=== PATIENT | male | born 1970 | race Caucasian/White ===

== ENCOUNTER → 2016-12-07 | Outpatient (CLI) | payer BC ==
[2016-12-07 17:33] LABS: LIPASE 199 IU/L (23-300)
== END ==
LOC: LAB 17:11
PROVIDERS: ATTEND Internal Medicine
DX: R10.13 Epigastric pain (principal); F17.200 Nicotine dependence, unspecified, uncomplicated
CPT/HCPCS: 36415; 82150; 83690

== ENCOUNTER → 2016-12-18 | Outpatient (CLI) | payer BC ==
--- NOTE | 2016-12-18 23:04 | DI ---
US ABDOMEN LIMITED,12/18/2016 10:48 AM: Clinical History: Dyspepsia. Previous Exam: None at this facility. Findings: Multiple grayscale and color Doppler sonographic images are obtained through the right upper quadrant , and demonstrates diffuse fatty infiltration of the liver. The gallbladder is normal the gallbladder wall measuring 2 mm. The common bile duct measured 3 mm. The right kidney is normal with some mild cortical thinning. The right kidney measures 11.5 cm in sandra gth without hydronephrosis nor nephrolithiasis. The pancreas is not well seen. Visualized portions of the aorta are unremarkable. Impression: Diffuse fatty infiltration of the liver otherwise unremarkable. Pancreas not well evaluated. Mild right renal cortical thinning may represent underlying medical renal disease.
== END ==
LOC: US 10:44
PROVIDERS: ATTEND Internal Medicine
DX: R10.13 Epigastric pain (principal); K76.0 Fatty (change of) liver, not elsewhere classified; F17.200 Nicotine dependence, unspecified, uncomplicated
CPT/HCPCS: 76705

== ENCOUNTER 2016-12-23 14:00 | Observation (INO) | payer BC ==
[2016-12-23] MEDS ORDERED: Sodium Chloride 0.9% 1,000 ML PRIMARY IV ONE (14:09)
[2016-12-23] MEDS ORDERED: NORMAL SALINE 10 ML SYRINGE FLUSH IVP PRN ×5 (14:09→16:32)
--- NOTE | 2016-12-23 14:21 | EKG ---
[address] [address] Measurements Intervals [place] Rate: 99 P: 44 WI: 133 QRS: 60 QRSD: 101 T: 60 QT: 363 QTc: 420 Interpretive Statements SINUS RHYTHM NONSPECIFIC T-WAVE ABNORMALITY No previous ECG available for comparison Electronically Signed On 12-23-16 14:41:16 MDT by Ed Bowles [id number]
[2016-12-23 14:27] LABS: BASOPHILS # (AUTO) 0.05 10*3/UL; BASOPHILS % (AUTO) 0.7 % (0-1); EOSINOPHILS # (AUTO) 0.08 10*3/UL; EOSINOPHILS % (AUTO) 1.2 % (0-8); HEMATOCRIT 49.1 % (42.0-52.0); HEMOGLOBIN 17.4 g/dL (14.0-18.0); LYMPHOCYTES # (AUTO) 2.14 10*3/uL; MEAN CORPUSCULAR HEMOGLOBIN 30.9 PG (27-31); MEAN CORPUSCULAR HGB CONC 35.4 g/dL (33-37); MEAN CORPUSCULAR VOLUME 87.1 FL (80-90); RED BLOOD COUNT 5.64 10^6/uL (4.70-6.10)
[2016-12-23 14:29] LABS: PLATELET MORPHOLOGY COMMENT NORMAL MORPHOLOGY (NORM); RBC MORPHOLOGY COMMENT NORMAL MORPHOLOGY (NORM); WBC MORPHOLOGY COMMENT NORMAL MORPHOLOGY (NORM)
[2016-12-23 14:40] LABS: BUN/CREATININE RATIO 19.28 (6-20); CALCIUM 8.6 mg/dL (8.7-10.7); MAGNESIUM 2.2 mg/dL (1.6-2.4); SERUM ALBUMIN 4.6 g/dL (3.5-4.8)
--- NOTE | 2016-12-23 14:59 | PDOC ---
Syncope/Near-Syncope HPI - General Chief Complaint: Syncope / Near-Syncope Stated Complaint: SYNCOPAL EPISODE Date Seen by Provider: 12/23/16 Time Seen by Provider: 14:05 Source: POSITIVE: Patient Exam Limitations: POSITIVE: No limitations Nurse's Notes Reviewed & Considered: Yes - History of Present Illness Initial Comments: The patient is a 46-year-old male who presents to the emergency department after passing out. He has a history of hypertension and for the past 6 months or so has been having some intermittent chest pain and pressure in his lower chest and epigastric region. He has seen his primary care provider recently and underwent a gallbladder ultrasound which was unremarkable except for fatty liver. His blood pressure was running on the high side at his last doctor's visit and he was changed from an RANI inhibitor for blood pressure to an rani/ diuretic combination which she is just started on within the last week. He states for the past couple of days he has been lightheaded with standing. He states that this happened several times yesterday. This afternoon he had just stood up and became very lightheaded and actually passed out. He also reports that he has continued pressure across his lower chest. This is the same pressure that he has been having fairly consistently now for the past 6 months however he states more recently it seems to be getting worse. He states he did have a previous stress test that was normal. In looking through his records however this was done in 2014. He states he does have some associated shortness of breath and was short of breath around the time when he passed out as well. He denied any rapid heartbeat or increased chest pain just prior to passing out. He currently states he is feeling better. He denies any headache , numbness or weakness in his arms or legs or any other associated complaints. - Patient Home Medications Home Medications: Home Medications Pantoprazole Sodium 1 tab PO BID #180 tab 07/08/16 Valsartan/Hydrochlorothiazide [Valsartan-Hctz 320-12.5 Mg Tab] 1 each PO QD #90 tab 12/07/16 - Patient Allergies Allergies/Adverse Reactions: Allergies Allergy/AdvReac Type Severity Reaction Status Date / Time No Known Allergies Allergy Verified 12/23/16 14:06 Past Medical History - heen Additional HEENT History: EAR RINGING Cardiovascular History: Hypertension Respiratory History: Denies History Gastrointestinal History: GERD Additional Gastrointestinal History: BARRETTS ESOPHAGUS. HX BLEEDING GASTRIC ULCER 15 YRS AGO Genitourinary History: Denies History Endocrine History: Denies History Musculoskeletal History: Denies History Prosthesis or Implant: No Neurological History: Denies History Blood Disorders: Denies History Psychiatric History: Denies History History of Sexually Transmitted Diseases: No Cancer History: Denies History In Past Year Been Physically Harmed or Verbally Threatened: No History of MDRO: No History of Other Communicable Diseases: No Tobacco Use: Never Smoker Alcohol Use: Occasionally Substance Use Type: None Previous Surgical History: Yes Type / Date of Surgery: EGD X 2 Anesthesia Reactions: No Malignant Hyperthermia: No Significant Family History: No pertinent family hx ROS - Limitations ROS Limitations: No Limitations Constitution: DENIES: Chills, Fever Cardiovascular: REPORTS: Chest Pain, Blood Pressure Problem (Blood pressure has been elevated recently). DENIES: Heart Racing, Heart Palpitations, Edema Respiratory: REPORTS: Shortness Of Breath. DENIES: Cough Non Productive, Cough Productive, Hurts To Breathe Neurological: DENIES: Headache, Numbness, Weakness Gastrointestinal: REPORTS: Other (Pain not worsened with eating). DENIES: Nausea, Vomitting Musculoskeletal: REPORTS: Denies MS Symptoms Eyes: REPORTS: Denies Symptoms ENT: REPORTS: Denies Symptoms Skin: DENIES: Rash Syncope / Near-Syncope Exam - General Appearance General Appearance: POSITIVE: Alert, Cooperative, No Acute Distress - HEENT HEENT: POSITIVE: Head Inspection Nml, Eyes Inspection Nml, Ears Inspection Nml, Pharynx Inspect. Nml, PERRL, EOMI - Neck / Back Neck/Back: POSITIVE: Supple. NEGATIVE: Cervical Lymphadenopathy - Respiratory Respiratory: POSITIVE: No Respiratoy Distress, Breath Sounds Normal - Cardiovascular Cardiovascular: POSITIVE: Regular Rate and Rhythm, Heart Sounds Normal Peripheral Pulses: Dorsalis-pedis (R): 2+, Dorsalis-pedis (L): 2+ - Abdomen Abdomen: Soft: (All Quadrants), Denies Tenderness: (All Quadrants), No Distention: (All Quadrants) - Skin Skin: POSITIVE: Intact, No Rash - Extremities Extremity: Normal ROM: (All Extremities), Normal Inspection: (All Extremities) - Neuro / Psych Higher Functions: POSITIVE: Normal Speech Cranial Nerves: POSITIVE: Normal As Tested Sensorimotor: POSITIVE: No Motor Deficits, No Sensory Deficits, Other (No focal deficits) Syncope/Near-Syncope Progress - Results Reviewed by me Lab Results Reviewed: Yes Lab Results:: Laboratory Results 12/23/16 12/23/16 Range/Units 14:09 14:10 WBC 6.67 (4.8-10.8) 10^3/uL RBC 5.64 (4.70-6.10) 10^6/uL Hgb 17.4 (14.0-18.0) g/dL Hct 49.1 (42.0-52.0) % MCV 87.1 (80-90) FL MCH 30.9 (27-31) PG MCHC 35.4 (33-37) g/dL RDW Std Deviation 40.7 (39-50) fL RDW Coeff of Elsy 12.9 (11.5-14.5) % Plt Count 295 (140-350) 10*3/uL MPV 9.0 (7.4-12.2) FL Immature Gran % (Auto) 0 (0-5) % Neut % (Auto) 60.0 (50-80) % Lymph % (Auto) 32.1 (10-50) % [place] % (Auto) 6.0 (5-15) % Eos % (Auto) 1.2 (0-8) % Baso % (Auto) 0.7 (0-1) % Immature Gran # (Auto) 0 10*3/UL Neut # (Auto) 4.00 10*3/UL Lymph # (Auto) 2.14 10*3/uL [place] # (Auto) 0.40 (0.3-0.8) 10*3/UL Eos # (Auto) 0.08 10*3/UL Baso # (Auto) 0.05 10*3/UL WBC Morphology Comment Normal morphology (NORM) Plt Morphology Comment Normal morphology (NORM) RBC Morph Comment Normal morphology (NORM) D-Dimer < 0.19 (0.00-0.59) mg/L Sodium 137 (135-145) meq/L Potassium 3.5 L (3.8-5.2) meq/L Chloride 102 (98-112) meq/L Carbon Dioxide 23 (23-33) meq/L Anion Gap 12 (5-20) BUN 27 H (7-22) mg/dL Creatinine 1.4 (0.70-1.50) mg/dL Estimated GFR 54 (>60 ml/min/1.73m(2)) BUN/Creatinine Ratio 19.28 (6-20) Glucose 128 H (78-110) mg/dL Calculated Osmolality 290.0 (267-292) mOsm/kg Calcium 8.6 L (8.7-10.7) mg/dL Magnesium 2.2 (1.6-2.4) mg/dL Total Bilirubin 0.9 (0.3-1.2) mg/dL AST 50 (21-57) IU/L ALT 53 (21-72) IU/L Alkaline Phosphatase 86 (38-126) IU/L Troponin I < 0.012 (< 0.040) ng/mL Total Protein 8.4 H (6.1-8.0) g/dL Albumin 4.6 (3.5-4.8) g/dL Globulin 3.8 (2.50-4.10) g/dL Albumin/Globulin Ratio 1.20 L (1.3-2.0) mg/g EKG Interpreted/Reviewed By Me:: Yes EKG Interpretation:: POSITIVE: Normal Sinus Rhythm, Normal Rate, Normal Intervals, Normal QRS, Normal ST/T - Patient's Progress MDM / ED Course: His initial EKG done shortly after arrival shows normal sinus rhythm with no acute changes. Orthostatic vital signs reveal only a slight raise in pulse with no change in blood pressure. An IV was established and he did receive 1 L bolus of normal saline. The patient's blood pressure remained in the 120s systolic here in the emergency department. His initial EKG shows normal sinus rhythm with no acute changes. His blood work is all essentially normal with a normal troponin and normal d-dimer. His syncopal episode may be secondary to hypovolemia from recent addition of a diuretic to his blood pressure medication. The patient does have ongoing intermittent chest pain which seems to be getting progressively worse and is associated with exertion. He had a normal exercise stress test over 2 years ago. All of the current findings are discussed with the patient. After further discussion it was decided to admit the patient for further cardiac monitoring and testing. Dr. Pemberton has agreed to admit the patient and the patient is in agreement with this plan. - Consult Counseled: POSITIVE: Patient, RE: Lab Results, RE: Radiology Results, RE: DX Patient Care Time - Estimated PCT Patient Care Time (In Minutes): 30 Vital Signs - Recent Vital Signs Vital Signs: Vital Signs (Last 8 hours) Temp Pulse Pulse Pulse Pulse Resp BP 12/23/16 14:09 100 100 110 H 127/55 12/23/16 14:04 97.2 F 110 H 16 BP BP BP Pulse Ox 12/23/16 14:09 118/86 122/83 12/23/16 14:04 133/94 98 - VS Reviewed Vital Signs Reviewed: Yes Discharge Clinical Impression: Syncope, Chest pain Discharge Disposition: Admit to Observation Condition: Fair
[2016-12-23] MEDS ORDERED: LIDOCAINE W/ SODIUM BICARB 0.5 ML SYR SUBD PRN ×2 (16:15→16:32)
[2016-12-23] MEDS ORDERED: HEPARIN 5000 UNIT/1 ML SUBCUT SCH (16:15)
[2016-12-23] MEDS ORDERED: ONDANSETRON 4 MG/2 ML VIAL IVP PRN ×2 (16:15→16:32)
--- NOTE | 2016-12-23 16:27 | PDOC ---
History and Physical - History of Present Illness History of Present Illness: This is a very nice 46-year-old gentleman with past medical history significant for hypertension for about 6 months. He has been having chest pressure associated with the lightheadedness and shortness of breath over the last 6 months. His primary care performance ultrasound is gallbladder which was negative. However at that visit his blood pressure was higher than usual and he was started on lance plus a diuretic since then he says he has had more lightheadedness especially when the he gets up from the chair and had a syncopal episode here yesterday accompanied by chest pressure and shortness of breath which prompted him to come to ER. Was admitted for further evaluation of his syncope and chest pressure. Patient says that that the pain comes on especially when he goes up steps or walks and now it is getting worse and worse and now it is constant his chest pain now is a 4 out of 10. 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 Surgical History: 2 EGDs for gastric ulcer Tobacco Use: Never Smoker Do you dip or chew tobacco: Yes Substance Use Type: None Alcohol Use: None Medication / Allergies Home Medications: Home Medications Medication Instructions Recorded Confirmed Type Pantoprazole Sodium 1 tab PO BID #180 tab 07/08/16 12/23/16 Clinic Valsartan/Hydrochlorothiazide 1 each PO QD #90 tab 12/07/16 12/23/16 Clinic [Valsartan-Hctz 320-12.5 Mg Tab] Allergies/Adverse Reactions: Allergies Allergy/AdvReac Type Severity Reaction Status Date / Time No Known Allergies Allergy Verified 12/23/16 14:06 Review of Systems - Review of Systems All Systems: Reviewed & No Additional Complaints Except as Stated - Cardiovascular Cardiovascular: REPORTS: Chest Pain, Syncope - Gastrointestinal Gastrointestinal / Abdominal: DENIES: Negative System Review, Nausea, Vomiting, Diarrhea, Constipation, Abdominal Pain, Bloody Stool, Poor Appetite, Heartburn, Regurgitation, Bloating, Lactose Intolerance, Melena, Bright Red Blood Per Rectum, Other, See HPI - Genitourinary Genitourinary: DENIES: Negative System Review, Pain, Burning, Hematuria, Incontinence, Urgency, Hesitant Stream, Decreased Stream, Nocutria, Discharge, Sexual Dyfunction, Other, See HPI - Neurological Neurologic: DENIES: Negative System Review, Headache, Numbness/Paresthesia, Tremors, Weakness, Seizures, Head Trauma, LOC, Dizziness, Confusion, Memory Loss , Difficulty Walking, Incoordination, Other, See HPI Exam - Vitals Vital Signs: Vital Signs Temperature 97.2 F Temperature Source Temporal Artery Scan Pulse Rate [Telemetry] 110 Pulse Rate [Standing] 110 Pulse Rate [Sitting] 100 Pulse Rate [Lying] 100 Respiratory Rate 16 Blood Pressure [Standing] 122/83 Blood Pressure [Sitting] 118/86 Blood Pressure [Lying] 127/55 Blood Pressure [Right Arm] 133/94 Pulse Ox 98 Oxygen Delivery Method Room Air Height 5 ft 9 in Weight 90.718 kg - General General Appearance: POSITIVE: No Acute Distress, Cooperative - Head Head Exam: POSITIVE: Normal Inspection, Normocephalic, Atraumatic - Eye Eye Exam: POSITIVE: Normal Appearance - Neck Neck Exam: POSITIVE: No Tenderness - Respiratory Respiratory Exam: POSITIVE: Clear to Auscultation - Bilaterally, Breathing Non Labored, Normal To Percussion - Cardiovascular Cardiovascular Exam: POSITIVE: RRR, No Murmur, No Clicks, No Gallops - GI/Abdominal GI/Abdominal Exam: POSITIVE: Normal Bowel Sounds, Non Tender, Non Distended, Soft - Extremities Extremities Exam: POSITIVE: Normal Capillary Refill, No Clubbing Present, No Edema Present - Neurological Neurological Exam: POSITIVE: Alert, Oriented x 3, CN II-XII Intact, No Facial Droop, Speech Intact / Clear Results - Labs CBC and BMP: 12/23/16 14:09 12/23/16 14:10 Labs - Last 24 Hours: Laboratory Results 12/23/16 12/23/16 Range/Units 14:09 14:10 WBC 6.67 (4.8-10.8) 10^3/uL RBC 5.64 (4.70-6.10) 10^6/uL Hgb 17.4 (14.0-18.0) g/dL Hct 49.1 (42.0-52.0) % MCV 87.1 (80-90) FL MCH 30.9 (27-31) PG MCHC 35.4 (33-37) g/dL RDW Std Deviation 40.7 (39-50) fL RDW Coeff of Elsy 12.9 (11.5-14.5) % Plt Count 295 (140-350) 10*3/uL MPV 9.0 (7.4-12.2) FL Immature Gran % (Auto) 0 (0-5) % Neut % (Auto) 60.0 (50-80) % Lymph % (Auto) 32.1 (10-50) % [place] % (Auto) 6.0 (5-15) % Eos % (Auto) 1.2 (0-8) % Baso % (Auto) 0.7 (0-1) % Immature Gran # (Auto) 0 10*3/UL Neut # (Auto) 4.00 10*3/UL Lymph # (Auto) 2.14 10*3/uL [place] # (Auto) 0.40 (0.3-0.8) 10*3/UL Eos # (Auto) 0.08 10*3/UL Baso # (Auto) 0.05 10*3/UL WBC Morphology Comment Normal morphology (NORM) Plt Morphology Comment Normal morphology (NORM) RBC Morph Comment Normal morphology (NORM) D-Dimer < 0.19 (0.00-0.59) mg/L Sodium 137 (135-145) meq/L Potassium 3.5 L (3.8-5.2) meq/L Chloride 102 (98-112) meq/L Carbon Dioxide 23 (23-33) meq/L Anion Gap 12 (5-20) BUN 27 H (7-22) mg/dL Creatinine 1.4 (0.70-1.50) mg/dL Estimated GFR 54 (>60 ml/min/1.73m(2)) BUN/Creatinine Ratio 19.28 (6-20) Glucose 128 H (78-110) mg/dL Calculated Osmolality 290.0 (267-292) mOsm/kg Calcium 8.6 L (8.7-10.7) mg/dL Magnesium 2.2 (1.6-2.4) mg/dL Total Bilirubin 0.9 (0.3-1.2) mg/dL AST 50 (21-57) IU/L ALT 53 (21-72) IU/L Alkaline Phosphatase 86 (38-126) IU/L Troponin I < 0.012 (< 0.040) ng/mL Total Protein 8.4 H (6.1-8.0) g/dL Albumin 4.6 (3.5-4.8) g/dL Globulin 3.8 (2.50-4.10) g/dL Albumin/Globulin Ratio 1.20 L (1.3-2.0) mg/g Assessment and Plan - Patient Problems (1) Chest pain Current Visit: Yes Status: Acute Comment: Troponins are negative, I will hold off on his face/diuretic at this point Lexiscan stress test after he rules out no acute changes on EKG. patient is still having chest pain 4 out of 10 he said he did not tell the ER we'll also repeat an EKG and given a sublingual nitroglycerin (2) Syncope Current Visit: Yes Status: Acute Comment: He will need an echo he does not feel any palpitations keep him on telemetry. We will also do carotid the Dopplers (3) Hypertension Current Visit: Yes Status: Acute Comment: Hold the medications for now (4) GERD (gastroesophageal reflux disease) Current Visit: Yes Status: Acute Comment: Continue Protonix 40 twice a day for Lee's
--- NOTE | 2016-12-23 18:09 | DI ---
DUPLEX COLOR DOPPLER CAROTID ULTRASOUND, 12/23/2016 4:28 PM: Clinical History: Syncope. Previous Exam: None at this facility. Technique: 2D real time imaging is supplemented with duplex color doppler ultrasound imaging. RIGHT CAROTID ARTERY: 2D real time imaging of the right carotid system shows minimal intimal thickening in the right common carotid artery. There is a noncalcified plaque in the proximal right internal carotid artery. The ri ght external carotid artery appears normal. Peak systolic velocities through the right common carotid , the external carotid, and the internal carotid are 93 cm/s, 90 cm/s, and 80 cm/s, respectively. All values correspond to diameter stenoses of 0-49%. LEFT CAROTID ARTERY: 2D real time imaging of the left carotid system shows minimal intimal thickening of the left common c arotid artery with a small noncalcified plaque in the distal third. Minimal noncalcified plaques are present in the proximal portion of the left internal and external carotid arteries. Peak systolic eduardo ocities through the left common carotid, the external carotid, and the internal carotid are 103 cm/s, 91 cm/s, and 76 cm/s, respectively. All values correspond to diameter stenoses of 0-49%. VERTEBRAL ARTERIES: There is antegrade flow through both vertebral arteries Cardiac rhythm is regular. Peak systolic [place] through the visualized portions of the right and left vertebral arteries are 70 cm/s and 42 cm /s, respectively. Both values correspond to diameter stenoses of 0-49%. Readin. There is no hemodynamically significant stenosis of either carotid system. 2. There is antegrade flow through both vertebral arteries. Cardiac rhythm is regular.
[2016-12-23] MEDS ORDERED: NITROGLYCERIN 0.4 MG SL TAB (BOTTLE OF 3) SL ONE (18:14)
[2016-12-23] MEDS ORDERED: PANTOPRAZOLE 40 MG TABLET PO SCH (21:00)
[2016-12-23] MEDS: PANTOPRAZOLE 40 MG TABLET PO SCH (21:23)
[2016-12-24] MEDS: HEPARIN 5000 UNIT/1 ML SUBCUT SCH ×3 (01:22→16:00)
--- NOTE | 2016-12-24 05:32 | EKG ---
[address] [address] Measurements Intervals [place] Rate: 101 P: 30 DC: 138 QRS: 40 QRSD: 99 T: 43 QT: 365 QTc: 423 Interpretive Statements SINUS TACHYCARDIA NONSPECIFIC T-WAVE ABNORMALITY ABNORMAL RHYTHM ECG Compared to ECG 12/23/2016 14:27:33 Sinus rhythm no longer present T-wave abnormality still present Electronically Signed On 12-24-16 09:53:18 MDT by Ed Bowles [email or web address]
[2016-12-24 07:22] LABS: BUN/CREATININE RATIO 23.63 (6-20); CALCIUM 8.6 mg/dL (8.7-10.7); EST GLOMERULAR FILTRATION > 60 (>60 ml/min/1.73m(2)); SERUM ALBUMIN 3.5 g/dL (3.5-4.8)
[2016-12-24] MEDS: PANTOPRAZOLE 40 MG TABLET PO SCH (08:50)
--- NOTE | 2016-12-24 09:50 | DCSUMMARY ---
Hospitalization Summary Hospital Course: Final Discharge Diagnosis: Current Visit Problems Problem Status Priority Diagnosed Code Chest pain Acute R07.9 GERD (gastroesophageal reflux disease) Acute K21.9 GERD with apnea Acute K21.9, R06.81 Hypertension Acute I10 Syncope Acute R55 Diagnostic Data, Laboratory Data, and Procedures of Signifigance: Laboratory Results 12/23/16 12/23/16 12/23/16 Range/Units 09:02 14:09 14:10 WBC 6.67 (4.8-10.8) 10^3/uL RBC 5.64 (4.70-6.10) 10^6/uL Hgb 17.4 (14.0-18.0) g/dL Hct 49.1 (42.0-52.0) % MCV 87.1 (80-90) FL MCH 30.9 (27-31) PG MCHC 35.4 (33-37) g/dL RDW Std Deviation 40.7 (39-50) fL RDW Coeff of Elsy 12.9 (11.5-14.5) % Plt Count 295 (140-350) 10*3/uL MPV 9.0 (7.4-12.2) FL Immature Gran % (Auto) 0 (0-5) % Neut % (Auto) 60.0 (50-80) % Lymph % (Auto) 32.1 (10-50) % Gates % (Auto) 6.0 (5-15) % Eos % (Auto) 1.2 (0-8) % Baso % (Auto) 0.7 (0-1) % Immature Gran # (Auto) 0 10*3/UL Neut # (Auto) 4.00 10*3/UL Lymph # (Auto) 2.14 10*3/uL Gates # (Auto) 0.40 (0.3-0.8) 10*3/UL Eos # (Auto) 0.08 10*3/UL Baso # (Auto) 0.05 10*3/UL WBC Morphology Comment Normal morphology (NORM) Plt Morphology Comment Normal morphology (NORM) RBC Morph Comment Normal morphology (NORM) D-Dimer < 0.19 (0.00-0.59) mg/L Sodium 137 (135-145) meq/L Potassium 3.5 L (3.8-5.2) meq/L Chloride 102 (98-112) meq/L Carbon Dioxide 23 (23-33) meq/L Anion Gap 12 (5-20) BUN 27 H (7-22) mg/dL Creatinine 1.4 (0.70-1.50) mg/dL Estimated GFR 54 (>60 ml/min/1.73m(2)) BUN/Creatinine Ratio 19.28 (6-20) Glucose 128 H (78-110) mg/dL Calculated Osmolality 290.0 (267-292) mOsm/kg Calcium 8.6 L (8.7-10.7) mg/dL Magnesium 2.2 (1.6-2.4) mg/dL Total Bilirubin 0.9 (0.3-1.2) mg/dL AST 50 (21-57) IU/L ALT 53 (21-72) IU/L Alkaline Phosphatase 86 (38-126) IU/L Total Creatine Kinase 107 (55-170) IU/L Troponin I < 0.012 < 0.012 (< 0.040) ng/mL Total Protein 8.4 H (6.1-8.0) g/dL Albumin 4.6 (3.5-4.8) g/dL Globulin 3.8 (2.50-4.10) g/dL Albumin/Globulin Ratio 1.20 L (1.3-2.0) mg/g 12/23/16 12/24/16 12/24/16 Range/Units 18:35 02:00 06:30 WBC (4.8-10.8) 10^3/uL RBC (4.70-6.10) 10^6/uL Hgb (14.0-18.0) g/dL Hct (42.0-52.0) % MCV (80-90) FL MCH (27-31) PG MCHC (33-37) g/dL RDW Std Deviation (39-50) fL RDW Coeff of Elsy (11.5-14.5) % Plt Count (140-350) 10*3/uL MPV (7.4-12.2) FL Immature Gran % (Auto) (0-5) % Neut % (Auto) (50-80) % Lymph % (Auto) (10-50) % Gates % (Auto) (5-15) % Eos % (Auto) (0-8) % Baso % (Auto) (0-1) % Immature Gran # (Auto) 10*3/UL Neut # (Auto) 10*3/UL Lymph # (Auto) 10*3/uL Gates # (Auto) (0.3-0.8) 10*3/UL Eos # (Auto) 10*3/UL Baso # (Auto) 10*3/UL WBC Morphology Comment (NORM) Plt Morphology Comment (NORM) RBC Morph Comment (NORM) D-Dimer (0.00-0.59) mg/L Sodium 137.0 (135-145) meq/L Potassium 3.8 (3.8-5.2) meq/L Chloride 104.0 (98-112) meq/L Carbon Dioxide 26.0 (23-33) meq/L Anion Gap 7.0 (5-20) BUN 26.0 H (7-22) mg/dL Creatinine 1.1 (0.70-1.50) mg/dL Estimated GFR > 60 (>60 ml/min/1.73m(2)) BUN/Creatinine Ratio 23.63 H (6-20) Glucose 99.0 (78-110) mg/dL Calculated Osmolality 288.50 (267-292) mOsm/kg Calcium 8.6 L (8.7-10.7) mg/dL Magnesium (1.6-2.4) mg/dL Total Bilirubin 0.9 (0.3-1.2) mg/dL AST 24.0 (21-57) IU/L ALT 45.0 (21-72) IU/L Alkaline Phosphatase 60.0 (38-126) IU/L Total Creatine Kinase (55-170) IU/L Troponin I < 0.012 < 0.012 < 0.012 (< 0.040) ng/mL Total Protein 6.2 (6.1-8.0) g/dL Albumin 3.5 (3.5-4.8) g/dL Globulin 2.7 (2.50-4.10) g/dL Albumin/Globulin Ratio 1.20 L (1.3-2.0) mg/g History and Physical pertinent to Admission: Course of Hospitalization: This very nice 46-year-old gentleman, with history of GERD and hypertension he has been having chest pain which comes off and on for the past 6 months. Also was given extra blood pressure medication in the form of valsartan plus hydrochlorothiazide to improve his blood pressure and since this was started to have a syncopal episode which I believe is vasovagal or from 2 low blood pressure when he stood up. He did say he had chest pressure or shortness of breath when this happened. No EKG changes, troponins were negative 3 also echo was done verbal report from cardiology was no acute findings. Stress test is pending at this time and further planning will be done according to results. At present time I have taken him off his blood pressure medication and blood pressure seems to be okay at present time he is not the had any syncopal episodes in the hospital and carotid Dopplers were unremarkable. Lexiscan stress test and no reversible defects I will also talk to Dr. agosto cardiology no acute abnormality other than maybe some marginal right heart mild enlargement therefore I will order the CT scan with PE protocol which was negative. Did not find any diagnosis to support his chest pain or shortness of breath he will see Dr. Fry general surgery for EGD and Wednesday is the primary care physician for further workup. Patient was rehydrated and BUN and creatinine improved potassium was replaced also his blood pressure was held since her blood pressures are running in the 110s and 120 range On the date of discharge, the patient was examined: Gen.: No acute distress, alert, nontoxic Heart: Regular rate and rhythm, no murmurs, clicks, gallops, or rubs Lungs: Clear to auscultation bilaterally, breathing is nonlabored Abdomen/GI: Normal tones on auscultation, soft, nontender, nondistended Musculoskeletal/extremities: No clubbing, cyanosis, or edema Vitals reviewed and are listed below Vital Signs (24 hrs) Temp Pulse Pulse Pulse Resp BP BP 12/24/16 13:00 98.8 F 89 18 126/82 12/24/16 11:00 93 12/24/16 07:56 97.3 F 75 16 124/78 12/24/16 07:00 81 84 12/24/16 04:52 97.1 F 67 16 108/69 12/24/16 04:31 12/24/16 03:00 70 12/23/16 23:54 97.0 F 89 20 111/71 12/23/16 23:00 76 Pulse Ox 12/24/16 13:00 92 12/24/16 11:00 12/24/16 07:56 92 12/24/16 07:00 12/24/16 04:52 93 12/24/16 04:31 94 12/24/16 03:00 12/23/16 23:54 93 12/23/16 23:00 Assessment and Plan: 1. As per discharge assessments above 2. Disposition: Home 3. Condition on discharge, stable and improved. 4. Diet: regular diet 5. Activities: resume normal activities 6. Follow-Up: 1. PCP for hypertension check 2. 7. Medications at the Time of Discharge: Home Medications Medication Instructions Recorded Confirmed Type Pantoprazole Sodium 1 tab PO BID #180 tab 07/08/16 12/23/16 Clinic 8. Time, care, counseling and coordination of care for this discharge is greater than 30 minutes. Exam - Vitals Vital Signs: Vital Signs Temperature 97.3 F Temperature Source Temporal Artery Scan Pulse Rate [Apical] 84 Pulse Rate [Pulse Oximeter] 75 Pulse Rate [Telemetry] 110 Pulse Rate 81 Respiratory Rate 16 Blood Pressure [Standing] 136/92 Blood Pressure [Sitting] 118/89 Blood Pressure [Lying] 126/91 Blood Pressure [Left Arm] 124/78 Blood Pressure [Right Arm] 108/69 Pulse Ox 92 Oxygen Delivery Method Room Air Height 5 ft 9 in Weight 91.626 kg Patient Problems - Patient Problem List (1) Chest pain Status: Acute (2) Syncope Status: Acute (3) Hypertension Status: Acute (4) GERD (gastroesophageal reflux disease) Status: Acute
--- NOTE | 2016-12-24 10:43 | STRESSTEST ---
[facility] [place] Interpretive Statements this is a very nice 46 yo male with pmhx sig for HTN who comes in with chest pain and syncope. echo verbal report from Dr Herrera was no acute abnormalities .trop neg x 3 and no ekg changes . will await pictures stress part no acute findings [email or web address]
[2016-12-24 13:13] VITALS: RESP 18; TEMP 98.8
--- NOTE | 2016-12-24 17:55 | DI ---
CT ANGIOGRAM OF THE CHEST, 12/24/2016 4:34 PM : Clinical History: Chest pain. This history was corroborated by the attending hospitalist physician. Previous Exam: None at this facility. Scans are performed from the base of the neck to the lower lung bases following IV administration of 95 mL of Isovue 300. Proprietary automated bolus tracking software was not used to verify the timing of the injection. The base of the neck and thoracic inlet are normal. There are no abnormal axillary, supraclavicular, mediastinal, or hilar nodes. The heart is normal. Small coronary calcifications are present in the pr oximal and middle thirds of the LAD and in the first diagonal branch. The pulmonary arteries are norm al. There is no pulmonary arterial hypertension. There is no evidence of pulmonary embolism or pulmon gerhard infarction. The lungs are clear and there are no pulmonary nodules or masses. Both adrenal glands and the spleen and the visualized portions of the liver and pancreas are normal. READIN. Normal CTA of the chest. There are no pulmonary emboli or pulmonary infarcts. 2. Coronary artery calcifications are present in the proximal and middle thirds of the LAD and in th e first diagonal branch.
--- NOTE | 2016-12-24 18:16 | DI ---
2 DAY LEXISCAN STRESS & REST MYOCARDIAL PERFUSION SCANS, 12/23/2016-12/24/2016: Clinical History: Chest pain. Hypertension. Previous Exam: None at this facility. Monitoring Physician: Dr. Norberto Pemberton. Dose: Stress dose: 33 mCi on 12/24/2016. Rest dose: 30 mCi on 12/23/2016. Quantitative Analysis: [employer] program with low dose limited CT chest scan attenuation correctio n. Exam Quality: Excellent. Rejected Beats: Stress = 0%; Rest = 0%. HR: Stress = 85-93 b/m; Rest = 72-7 9 b/m. Left ventricular chamber sizes are normal at stress and rest. Transient ischemic dilatation ratio is 1.10 (normal Dinh TID <= 1.22; normal Lexiscan TID <= 1.33). Stress LVEF: 87%; rest LVEF: 85%. The a ttenuated and the non-attenuated scans show no stress or rest abnormalities in perfusion, wall motion , or myocardial thickening. Limited CT scans of the heart faint calcifications in the proximal portio n of the LAD. There are no lung nodules or enlarged nodes. Readin. Normal stress and rest left ventricular chamber size. Transient ischemic dilatation ratio is 1.10 . 2. Normal stress and rest LVEF values of 87%, and 85%, respectively. 3. Normal stress and rest myocardial perfusion, wall motion, and thickening. 4. Limited CT scans of the heart show faint calcifications in the proximal portion of the LAD. No caroline ng nodule or adenopathy is seen.
== END 2016-12-24 17:56 | disposition home or self-care (01) ==
LOC: ER 14:00 → MED/SURG 16:14 → UNDODISOB 12-24 16:08
PROVIDERS: ADMIT Internal Medicine; ATTEND Internal Medicine
DX: R55 Syncope and collapse (principal); R07.9 Chest pain, unspecified; K21.9 Gastro-esophageal reflux disease without esophagitis; R06.81 Apnea, not elsewhere classified; I10 Essential (primary) hypertension
CPT/HCPCS: 36415 ×2; 71275; 78452; 80053 ×2; 82550; 83735; 84484 ×2; 85025; 85379; 93005; 93010; 93016; 93017; 93018; 93306; 93880; 94761; 96360; 96361; 99284 ×2; A9500; J2785; J1644; J7030

== ENCOUNTER 2016-12-30 09:02 | Day surgery (SDC) | payer BC ==
[~2016-12-30 09:02] MED LIST: LIDOCAINE 2% VISCOUS(20 MG/1 ML) - 15 ML UD CUP PO ONE; LIDOCAINE HCL/PF 2% (20 MG/ML) - 5 ML SYRINGE ONE; LIDOCAINE W/ SODIUM BICARB 0.5 ML SYR ONE; Lactated Ringers 1,000 ML PRIMARY IV ONE; MIDAZOLAM 5 MG/1 ML ONE; fentaNYL Inj 100 MCG/2 ML VIAL ONE
--- NOTE | 2016-12-30 11:25 | GEN.OPNOTE ---
EGD / Colonoscopy Report Surgery Date: 12/30/16 Preoperative Diagnosis: History of Lee's esophagitis. Atypical chest pain. Change in bowel habits. Diarrhea. Postoperative Diagnosis: Same. 4 small colon polyps. Procedure: #1 esophagogastroduodenoscopy with biopsy. #2 complete colonoscopy with biopsy and destruction of 4 small polyps as well as multiple random colon biopsies. Surgeon: Pietro Fry MD Anesthesia Provider: Dario Virgen CRNA Anesthesia Type: MAC Indications: See preoperative diagnosis. EGD Findings: Esophagus: [Normal] GE Junction : [Several small islands of probable Lee's mucosa within the distal esophagus. No significant inflammation.] Fundus : [Normal] Body : [Normal] Prepyloric : [Normal] Small Intestine : [Normal] A lubricated flexible upper endoscope was inserted and passed through the esophagus and stomach into the duodenum. The duodenum and duodenal bulb were unremarkable. Pyloric channel was patent. Antral biopsies were taken. Hemostasis was assured. The entire gastric mucosa was unremarkable. Hemostasis was assured. The scope was withdrawn into the distal esophagus. There is irregularity of the Z line and several small islands of probable Lee's mucosa above the Z line. Multiple biopsies were taken. Hemostasis was assured. The scope was withdrawn through the remainder of a normal- appearing esophagus and brought through the hypopharynx under suction completing that portion of the procedure. Colonoscopy Findings: Prep : [Very good] Cecum : [Normal.] Ascending : [Normal with the exception of a small colon polyp which was biopsied and destroyed] Transverse : [Normal] Sigmoid : [Normal with the exception of 3 small polyps biopsied and destroyed] Rectum : [Normal] Digital Rectal Exam : [No perianal pathology. Prostate of normal size and consistency.] Terminal ileum:[Visually normal, biopsies taken.] A lubricated flexible colonoscope was inserted and passed to the blind end of the cecum. The terminal ileum was intubated and appeared normal. With the patient's long history of diarrhea I did random biopsies from the terminal ileum , right colon, transverse colon, sigmoid colon, and rectum. The scope was withdrawn from the normal terminal ileum into the cecum. Air was aspirated as the scope was withdrawn. There is a small polyp in the right colon. It was biopsied and destroyed. Otherwise the right colon, hepatic flexure, transverse colon, splenic flexure, and descending colon were unremarkable. In the sigmoid colon were 3 small polyps. They were biopsied and destroyed and all combined in one specimen container. Hemostasis was assured. The scope was withdrawn into the rectum where random biopsies were taken. Visually it appeared normal. The scope was withdrawn completing the procedure. The patient tolerated all aspects of the procedure well without complication. He was taken to outpatient surgery in stable condition. Follow-up will be with my office on an as-needed basis. We will call the biopsy results when available and plan therapy and follow-up accordingly.
[2016-12-30 12:40] VITALS: TEMP 97
[2016-12-30 12:43] VITALS: RESP 18
== END 2016-12-30 11:49 | disposition home or self-care (01) ==
LOC: SDSC 09:02
PROVIDERS: ATTEND Surgery
DX: K22.70 Barrett's esophagus without dysplasia (principal); R07.89 Other chest pain; K63.5 Polyp of colon; R19.4 Change in bowel habit
CPT/HCPCS: 43239; 45380; J2250; J2704; J3010; J7120